=== PATIENT | male | born 1990 | race African-American/Black ===

== ENCOUNTER 2024-01-25 16:37 | Emergency (ER) | payer OTHER ==
[~2024-01-25] VITALS: Ht 190.5 cm; Wt 127.0 kg
[2024-01-25 17:18] LABS: BASOPHILS # (AUTO) 0.1 K/uL (0.0-0.2); BASOPHILS % (AUTO) 1.6 % (0.0-2.0); EOSINOPHILS # (AUTO) 0.3 K/uL (0.0-0.7); HEMATOCRIT 41 % (39-51); HEMOGLOBIN 13.6 g/dL (13.5-17.5); LYMPHOCYTES # (AUTO) 2.4 K/uL (0.8-4.8); LYMPHOCYTES % (AUTO) 33.2 % (20.0-44.0); MEAN CORPUSCULAR HEMOGLOBIN 28 PG (26.0-33.0); MEAN CORPUSCULAR HGB CONC 33 g/dl (31.0-36.0); MEAN CORPUSCULAR VOLUME 85 fL (80-96); MONOCYTES # (AUTO) 0.4 K/uL (0.1-1.30); MONOCYTES % (AUTO) 5.9 % (2.0-12.0); NEUTROPHILS % (AUTO) 55.3 % (43.0-81.0); PLATELET COUNT (AUTO) 360 K/uL (150-450); RED BLOOD CELL COUNT(AUTO) 4.82 MIL/uL (4.5-6.0); RED CELL DISTRIBUTION WIDTH 13.9 % (11.5-15.0); WHITE BLOOD COUNT (AUTO) 7.2 K/uL (4.3-11.0)
[2024-01-25 17:27] LABS: POTASSIUM 3.9 mmol/L (3.5-5.1)
[2024-01-25 17:32] LABS: ALBUMIN 3.1 g/dL (3.4-5.0); BILIRUBIN,DIRECT 0.1 mg/dL (0.0-0.2); BILIRUBIN,TOTAL 0.4 mg/dL (0.2-1.0); TOTAL PROTEIN, SERUM 7.5 g/dL (6.4-8.2)
[2024-01-25] MEDS ORDERED: FURO-145 PO (18:33)
[2024-01-25] MEDS ORDERED: IBUP-1953 PO (18:33)
[2024-01-25 18:47] VITALS: BP 131/83; TEMP 98.3; O2SAT 99
[2024-01-25 21:01] LABS: ANISOCYTOSIS 1+; EOSINOPHILS % (MANUAL) 4 % (0-4); LYMPHOCYTES % (MANUAL) 29 % (16-48); MONOCYTES % (MANUAL) 4 % (0-11.0); NEUTROPHILS % (MANUAL) 63 (42-76); PLATELET ESTIMATE ADEQUATE; ROULEAUX 1+
== END 2024-01-25 18:49 | disposition home or self-care (01) ==
LOC: ER 16:41
DX: M25.562 Pain in left knee (principal); M25.561 Pain in right knee; R22.43 Localized swelling, mass and lump, lower limb, bilateral; Z60.2 Problems related to living alone
CPT/HCPCS: 36415; 73564-TC; 73610-TC; 80048-TC; 80076-TC; 85025-TC; 93971-TC